=== PATIENT | female | born 1975 | race Two or more races ===

== ENCOUNTER 2020-07-06 08:06 | Day surgery (SDC) | payer OTHER | END 2020-07-06 15:10 | disposition home or self-care (01) | LOC: AMB-ENDOS 08:06 | PROVIDERS: ATTEND Colon & Rectal Surgery | DX: D13.1 Benign neoplasm of stomach (principal); K64.2 Third degree hemorrhoids; K62.89 Other specified diseases of anus and rectum; K44.9 Diaphragmatic hernia without obstruction or gangrene ==